=== PATIENT | female | born 1980 | race Two or more races ===

== ENCOUNTER 2024-02-17 13:19 | Emergency (ER) | payer OTHER ==
[~2024-02-17] VITALS: Ht 165.1 cm; Wt 89.8 kg
[2024-02-17] MEDS: KETOROLAC TROMETH 60MG/2ML VIAL IM ONE (15:41)
[2024-02-17] MEDS ORDERED: TRAM50TA2 PO (15:50)
[2024-02-17 15:55] VITALS: BP 138/90; PULSE 81; RESP 18; TEMP 97.8; O2SAT 99
== END 2024-02-17 16:02 | disposition home or self-care (01) ==
LOC: ER 13:19
DX: S09.8XXA Other specified injuries of head, initial encounter (principal); I10 Essential (primary) hypertension; R42 Dizziness and giddiness; M79.18 Myalgia, other site; Z98.51 Tubal ligation status; W22.01XA Walked into wall, initial encounter; Y93.89 Activity, other specified; Y92.69 Other specified industrial and construction area as the place of occurrence of the external cause; Y99.8 Other external cause status
CPT/HCPCS: 70450; 96372; 99285; J1885